=== PATIENT | female | born 1965 | race Caucasian/White ===

== ENCOUNTER 2016-09-12 05:59 | Outpatient (CLI) | payer BC ==
[~2016-09-12] VITALS: Ht 180.3 cm; Wt 108.9 kg
[~2016-09-12 05:59] MED LIST: ALPR1T PO; DCS100C PO; ENAL20TA PO; ESTR1TAB24 PO; HYDR1TAB75 PO; IBP800T PO; LVT.15T PO; VARE1TAB17 PO
== END 2016-09-12 12:15 ==
LOC: PREOP 05:59
PROVIDERS: ATTEND Internal Medicine
DX: Z01.818 Encounter for other preprocedural examination (principal); Z12.11 Encounter for screening for malignant neoplasm of colon

== ENCOUNTER 2016-09-14 09:17 | Day surgery (SDC) | payer BC ==
[~2016-09-14] VITALS: Ht 180.3 cm; Wt 108.9 kg
--- NOTE | 2016-09-14 07:27 | HISTORY AND PHYSICAL ---
DICTATING PHYSICIAN: Dr. Darnell DATE OF ADMISSION: 09/14/2016 Mrs. Grey is a 50-year-old white female referred by Dr. Nguyễn for screening colonoscopy. She reports that she had one other colonoscopy 12 years ago performed by Dr. Collins when she was having periodic rectal pain, abdominal pain and diarrhea. She apparently had some inflammation not felt to be inflammatory bowel disease. She continues to have some periodic severe rectal pain that will last for no longer than several minutes at a time. She no longer has diarrhea or abdominal pain. It has been several months since her last episode of rectal pain. It is not associated with defecation nor is defecation painful. She denies having to strain. Her weight is stable and there have been no bowel habit change. She has noted no bright red blood per rectum or melena. PAST MEDICAL HISTORY: 1. 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 2. She has a history of anxiety for which she takes citalopram and p.r.n. alprazolam. Currently she mostly takes it for insomnia with difficulty falling asleep. 3. She has history of hypertension for which he takes enalapril. 4. Is on estrogen replacement since hysterectomy for reported ovarian tumor that turned out to be benign. PAST SURGICAL HISTORY: Total abdominal hysterectomy approximately 9 years ago and bilateral salpingo-oophorectomy. FAMILY HISTORY: Father is living at the age of 76 and has a history of type 2 diabetes mellitus and underwent coronary artery bypass grafting at the of age 66. Mother at the age of 70 secondary to Alzheimer's dementia. She has 3 sisters and one brother who are alive and well. SOCIAL HISTORY: She is employed at [employer]. She has a 30 pack-year smoking history with rare alcohol intake. PHYSICAL EXAMINATION: Physical examination reveals a well-appearing white female in no acute distress. Blood pressure is 106/80, heart rate 72 and regular, respiratory rate 16 and nonlabored weight is 243 pounds, height roughly 5' 10". HEENT EXAMINATION: Unremarkable. TMs are clear. HEENT: Ear canals are unremarkable. The pharynx is a Mallampati class III configuration. No hyperemia is noted. No ulcerations were noted and there is no evidence for leukoplakia. NECK: Reveals no JVD, adenopathy or bruits. CHEST: Clear. CV: Reveals a regular rate and rhythm without murmur, S3 or S4. ABDOMEN: Soft, supple without masses, organomegaly or tenderness. EXTREMITIES: Reveal no cyanosis, clubbing, or edema. ASSESSMENT: 1. The patient was set-up for a screening colonoscopy on 09/14. Prep instructions were given with the [facility] prep kit and questions were answered. 2. In reviewing her electronic medical record and patient evaluation 45 minutes of care time were spent. Another 15 minutes of staff time was spent in setting up colonoscopy and going over prep instructions. 3. 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 Advised she could try wgjs-swy-havhown magnesium 250 mg daily. She was warned about mild diarrhea the onset of use which would usually moderate with continued usage. I thank you for the referral of this pleasant lady. Sincerely, Chidi Darnell Job ID: [id number] Dictated Date: 09/12/2016 20:48:00 Railroad [employer] Truck Builder Date: 09/13/2016 09:34:22/amos
[2016-09-14] MEDS ORDERED: NALOXONE 0.4 MG/ML 1 ML (NARCAN) VIAL IVP PRN (09:30)
[2016-09-14] MEDS ORDERED: FLUMAZENIL (ROMAZICON) 0.1 MG/ML 5 ML VIAL INJ PRN (09:30)
[2016-09-14] MEDS ORDERED: 1/2 NS IV SOLUTION 1,000 ML IV ONE (09:30)
[2016-09-14] MEDS ORDERED: LIDOCAINE JELLY 2% (XYLOCAINE) 5 ML TUBE ONE (09:36)
--- NOTE | 2016-09-14 09:38 | Pre-Op Note & Conscious Sedat ---
Pre-Operative Progress Note H&P Reviewed The H&P was reviewed, patient examined and no changes noted. Date H&P Reviewed: Sep 14, 2016 Time H&P Reviewed: 07:55 Conscious Sedation Pre-Proced ASA Class: 2 Airway Mallampati Classification: (tangirnaq appropriate class) I. II. III, IV Lungs Heart ASA score ASA 1: a normal healthy patient ASA 2: a patient with a mild systemic disease (mid diabetes, controlled hypertension, obesity ASA 3: a patient with a severe systemic disease that limits activity (angina , COPD, prior Myocardial infarction) ASA 4: a patient with an incapacitating disease that is a constant threat to life (CHF, renal failure) ASA 5: a moribund patient not expected to survive 24 hrs. (ruptured aneurysm) ASA 6: a declared brain patient whose organs are being harvested. For emergent operations, add the letter E after the classification Grade 2 Sedation Plan: Analgesia, Amnesia, Plan communicated to team members, Discussed options with patient/fam, Discussed risks with patient/fam Note The patient is an appropriate candidate to undergo the planned procedure, sedation, and anesthesia. The patient immediately re-assessed prior to indication. ERMELINDA CHASE MD Sep 14, 2016 09:38
[2016-09-14 09:45] VITALS: BP 109/77
[2016-09-14] MEDS: fentaNYL INJECTION 100 MCG/2 ML AMP IVP PRN ×4 (09:51→10:03)
[2016-09-14] MEDS: MIDAZOLAM 2 MG/2 ML (VERSED) VIAL IVP PRN ×5 (09:54→10:30)
[2016-09-14] MEDS ORDERED: MIDAZOLAM 2 MG/2 ML (VERSED) VIAL ONE ×3 (09:56)
[2016-09-14] MEDS ORDERED: fentaNYL INJECTION 100 MCG/2 ML AMP ONE (09:57)
[2016-09-14] MEDS ORDERED: ONDANSETRON 4 MG/2 ML (SDV) Z0FRAN ONE (09:59)
[2016-09-14] MEDS ORDERED: CITA20TA7 PO (10:15)
[2016-09-14] MEDS ORDERED: ONDANSETRON 4 MG/2 ML (SDV) Z0FRAN IVP ONE (10:30)
[2016-09-14] MEDS ORDERED: LIDOCAINE JELLY 2% (XYLOCAINE) 5 ML TUBE TOP ONE (10:30)
[2016-09-14 10:50] VITALS: BP 84/57
[2016-09-14 11:20] VITALS: BP 107/70
[2016-09-14 11:25] VITALS: BP 107/70
--- NOTE | 2016-09-17 09:37 | PROCEDURE REPORT ---
PROCEDURE PHYSICIAN: ERMELINDA CHASE DATE OF PROCEDURE: 09/14/2016 COLONOSCOPY SUMMARY: Colonoscopy was performed for screening purposes. The patient was placed in left lateral decubitus. Prior to undergoing colonoscopy, digital rectal evaluation was performed. Anal sphincter tone was normal. The perianal reflux was intact. Digital examination was compatible with an anterior rectocele. There was no evidence for stool pocketing. No other abnormalities were noted to digital inspection of the anal canal or distal rectal vault. The colonoscope was then inserted into the rectum and under direct visualization, advanced to the cecum. The cecum was identified by identification of the ileocecal valve and cecal strap. Photographic documentation was obtained. A careful inspection was made as the colonoscope was withdrawn. The patient tolerated the procedure well. FINDINGS: There was no evidence for internal or external hemorrhoids. The rectum was unremarkable. Several small to medium size sigmoid diverticulum were present, without evidence for diverticulitis. Several small descending colonic diverticulum were noted as well. The splenic flexure, transverse colon and hepatic flexure were unremarkable. Present in the proximal ascending colon was a diminutive 3 mm sessile adenomatous appearing polyp. It was photographed, biopsied and ablated with no subsequent blood loss. It was submitted for histopathology. The remainder of the ascending colon, ileocecal valve and cecum were unremarkable as was the appendiceal orifice. ASSESSMENT: 1. Mild diverticular disease confined to the sigmoid colon and ascending colon was noted without evidence for diverticulitis. 2. Anterior rectocele is noted on digital evaluation of the rectum. 3. One diminutive adenomas appearing polyp was removed from the proximal ascending colon via hot forceps. As long as there are no surprises on histopathology report, would advocate consideration for repeat surveillance colonoscopy in 5 years. I thank you for the referral of this pleasant lady. Sincerely, Job ID: [id number] Dictated Date: 09/14/2016 10:44:21 Form Maker Plaster Date: 09/17/2016 09:31:19 / tbk
== END 2016-09-14 11:25 | disposition home or self-care (01) ==
LOC: ENDO 09:17
PROVIDERS: ATTEND Internal Medicine
DX: Z12.11 Encounter for screening for malignant neoplasm of colon (principal); K63.5 Polyp of colon; K57.30 Diverticulosis of large intestine without perforation or abscess without bleeding; N81.6 Rectocele
CPT/HCPCS: 88305

== ENCOUNTER → 2019-12-29 | Outpatient (CLI) | payer BC ==
[~2019-12-29] MED LIST changes: +CITA20TA9 PO
--- NOTE | 2019-12-29 12:41 | Diagnostic Imaging Report ---
INDICATION: Routine screening. COMPARISON: 06/01/2015 and 03/20/2013. TECHNIQUE: 2D and 3D bilateral screening mammography was performed with CAD. FINDINGS: Both breasts are heterogeneously dense, limiting the sensitivity of mammography. Benign nodular densities in the upper outer left breast are noted and appear stable. No spiculated mass or malignant appearing microcalcifications are seen. The axillae are unremarkable. IMPRESSION: No mammographic features suspicious for malignancy are identified. ACR BI-RADS Category 2: Benign findings. Result letter will be mailed to the patient. Note: At least 10% of breast cancer is not imaged by mammography. Dictated by: Dictated on workstation # [id number]
== END ==
LOC: RAD 07:57
PROVIDERS: ATTEND Internal Medicine
DX: Z12.31 Encounter for screening mammogram for malignant neoplasm of breast (principal)
CPT/HCPCS: 77063; 77067

== ENCOUNTER → 2021-05-24 | Outpatient (CLI) | payer BC ==
[2021-05-24 10:15] VITALS: BP 132/82
--- NOTE | 2021-05-24 12:45 | Cardiology Stress Test Report ---
Stress Test Report Date of Procedure/Referring: Date of Procedure: May 24, 2021 PCP Krish Ortiz MD Admitting Physician Chriss Owens MD Indications: HTN Baseline Heart Rate: 64 Baseline Blood Pressure: Blood Pressure Systolic: 132 Blood Pressure Diastolic: 82 Baseline EKG: Baseline EKG: NSR Summary/Conclusion: Summary: In summary, the patient started exercising with a baseline heart rate, blood pressure and EKG mentioned above Patient was able to exercise for a total of 7 minutes on Jona protocol, METs 8 .5 Maximum heart rate 152 Maximum blood pressure 189/85 Stress EKG, Minimal nondiagnostic changes Recovery EKG , Return to baseline Conclusion: 1. Good exercise tolerance for a total of 7 minutes on Jona protocol, 8.5 METs, achieving 92 percent of maximum expected heart rate 2. Minimal nondiagnostic EKG changes with exercise returned to baseline during recovery 3. No arrhythmia was noted Copy Copies To 1: CHRISS OWENS MD, BASHAR J MD May 24, 2021 12:45
== END ==
LOC: CARD 10:00
PROVIDERS: ATTEND Internal Medicine Cardiovascular Disease
DX: R07.9 Chest pain, unspecified (principal); I10 Essential (primary) hypertension; I25.10 Atherosclerotic heart disease of native coronary artery without angina pectoris
CPT/HCPCS: 93017; 93306

== ENCOUNTER → 2023-03-11 | Outpatient (CLI) | payer BC ==
--- NOTE | 2023-03-11 11:16 | Diagnostic Imaging Report ---
INDICATION: Routine screening. Comparison is made with prior mammogram 12/29/2019. 2-D and 3-D bilateral screening mammography was performed with CAD. Both breasts are heterogeneously dense, limiting the sensitivity of mammography. Benign-appearing nodules appears stable bilaterally. No spiculated mass or malignant-appearing microcalcifications are seen. There are benign calcifications bilaterally. Axillae are unremarkable. IMPRESSION: No mammographic features suspicious for malignancy are identified. ACR BI-RADS Category 2: Benign findings. Result letter will be mailed to the patient. Note: At least 10% of breast cancer is not imaged by mammography. BI-RADS Category 2 Dictated by: Dictated on workstation # [id number]
== END ==
LOC: RAD 09:23
PROVIDERS: ATTEND Internal Medicine
DX: Z12.31 Encounter for screening mammogram for malignant neoplasm of breast (principal); Z00.00 Encounter for general adult medical examination without abnormal findings; I10 Essential (primary) hypertension; E03.8 Other specified hypothyroidism; E78.2 Mixed hyperlipidemia; D50.8 Other iron deficiency anemias
CPT/HCPCS: 77063; 77067